=== PATIENT | male | born 1950 | race Caucasian/White ===

== ENCOUNTER 2016-10-10 06:25 | Outpatient (RCR) | payer OTHER ==
[~2016-10-10] VITALS: Ht 170.2 cm; Wt 78.0 kg
[2016-10-10] MEDS ORDERED: Ketamine 500mg Inj ONE (06:26)
[2016-10-10] MEDS ORDERED: Succinylcholine 20mg/ml 10ml vial ONE (06:26)
[2016-10-10] MEDS ORDERED: NS 550ML IV ONE (06:26)
[2016-10-10] MEDS ORDERED: Atropine Sulfate 0.4mg/ml inj IVP PRN (19:45)
== END 2016-10-25 | disposition home or self-care (01) ==
LOC: ECT 06:25
DX: F33.2 Major depressive disorder, recurrent severe without psychotic features (principal)
CPT/HCPCS: 90870; J0330; J2405; J3490; J7040

== ENCOUNTER 2017-01-04 09:05 | Outpatient (RCR) | payer OTHER ==
[~2017-01-04] VITALS: Ht 170.2 cm; Wt 78.6 kg
[2017-01-04] MEDS ORDERED: Succinylcholine 20mg/ml 10ml vial ONE (09:06)
[2017-01-04] MEDS ORDERED: Ketamine 500mg Inj ONE (09:06)
[2017-01-04] MEDS ORDERED: NS 550ML IV ONE (09:06)
[2017-01-04] MEDS ORDERED: Atropine Sulfate 0.4mg/ml inj IVP PRN (10:16)
== END 2017-01-25 | disposition home or self-care (01) ==
LOC: ECT 09:05
DX: F33.2 Major depressive disorder, recurrent severe without psychotic features (principal)
CPT/HCPCS: 90870; J0330; J2405; J3490; J7040

== ENCOUNTER → 2017-03-27 | Outpatient (RCR) | payer OTHER ==
[~2017-03-27] VITALS: Ht 170.2 cm; Wt 78.6 kg
[~2017-03-27] MED LIST: Ketamine 500mg Inj ONE; NS 500ML IV ONE; Sodium Chloride 500ML 500 ML IV ONE; Succinylcholine 20mg/ml 10ml vial ONE
== END | disposition home or self-care (01) ==
LOC: ECT 07:48
DX: F33.2 Major depressive disorder, recurrent severe without psychotic features (principal)
CPT/HCPCS: 90870; J0330; J2405; J3490; J7040

== ENCOUNTER 2017-06-26 04:37 | Outpatient (RCR) | payer OTHER ==
[~2017-06-26] VITALS: Ht 170.2 cm; Wt 78.6 kg
[2017-06-26] MEDS ORDERED: NS 500ML IV ONE (04:38)
[2017-06-26] MEDS ORDERED: Succinylcholine 20mg/ml 10ml vial ONE (04:38)
[2017-06-26] MEDS ORDERED: Ketamine 500mg Inj ONE (04:38)
[2017-06-26 09:51] VITALS: BP 121/71
[2017-06-26] MEDS ORDERED: Sodium Chloride 500ML 500 ML IV ONE (10:09)
[2017-06-26 10:10] VITALS: BP 135/64
[2017-06-26 10:15] VITALS: BP 145/72
[2017-06-26 10:20] VITALS: BP 147/77
[2017-06-26 10:25] VITALS: BP 147/77
== END 2017-06-27 | disposition home or self-care (01) ==
LOC: ECT 04:37
DX: F33.2 Major depressive disorder, recurrent severe without psychotic features (principal)
CPT/HCPCS: 90870; J0330; J2405; J3490; J7040

== ENCOUNTER 2017-09-18 06:03 | Outpatient (RCR) | payer OTHER ==
[~2017-09-18] VITALS: Ht 30.5 cm; Wt 0.5 kg
[2017-09-27] MEDS ORDERED: NS 500ML ONE (08:00)
[2017-09-27] MEDS ORDERED: Ketamine 500mg Inj ONE (08:00)
[2017-09-27] MEDS ORDERED: Succinylcholine 20mg/ml 10ml vial ONE (08:00)
[2017-09-27 10:03] VITALS: BP 134/75
[2017-09-27] MEDS ORDERED: Sodium Chloride 500ML 500 ML IV ONE (10:19)
[2017-09-28 10:20] VITALS: BP 145/66
[2017-09-28 10:25] VITALS: BP 154/76
[2017-09-28 10:30] VITALS: BP 155/72
[2017-09-28 10:35] VITALS: BP 155/72
== END 2017-09-27 | disposition home or self-care (01) ==
LOC: EDSEX → ECT 06:03
DX: F33.2 Major depressive disorder, recurrent severe without psychotic features (principal); F34.1 Dysthymic disorder; J45.909 Unspecified asthma, uncomplicated; K86.2 Cyst of pancreas
CPT/HCPCS: 90870; J0330; J2405; J3490; J7040

== ENCOUNTER 2017-12-27 05:59 | Outpatient (RCR) | payer OTHER ==
[~2017-12-27] VITALS: Ht 170.2 cm; Wt 78.6 kg
[2017-12-27] MEDS ORDERED: Succinylcholine 20mg/ml 10ml vial ONE (06:00)
[2017-12-27] MEDS ORDERED: NS 500ML ONE (06:00)
[2017-12-27] MEDS ORDERED: Ketamine 500mg Inj ONE (06:00)
[2017-12-27 10:50] VITALS: BP 135/76
[2017-12-27] MEDS ORDERED: Sodium Chloride 500ML 500 ML IV ONE (11:08)
[2017-12-27 11:10] VITALS: BP 147/59
[2017-12-27 11:15] VITALS: BP 143/76
[2017-12-27 11:20] VITALS: BP 148/75
[2017-12-27 11:25] VITALS: BP 155/78
== END 2018-01-25 | disposition home or self-care (01) ==
LOC: ECT 05:59
DX: F33.2 Major depressive disorder, recurrent severe without psychotic features (principal)
CPT/HCPCS: 90870; J0330; J2405; J3490; J7040

== ENCOUNTER 2018-03-28 05:54 | Outpatient (RCR) | payer OTHER ==
[~2018-03-28] VITALS: Ht 170.2 cm; Wt 78.6 kg
[2018-03-28] MEDS ORDERED: NS 500ML ONE (05:55)
[2018-03-28] MEDS ORDERED: Succinylcholine 20mg/ml 10ml vial ONE (05:55)
[2018-03-28] MEDS ORDERED: Ketamine 500mg Inj ONE (05:55)
[2018-03-28] MEDS ORDERED: Sodium Chloride 500ML 500 ML IV ONE ×2 (09:59→10:26)
[2018-03-28 10:02] VITALS: BP 125/67
[2018-03-28 10:30] VITALS: BP 138/66
[2018-03-28 10:35] VITALS: BP 143/78
[2018-03-28 10:40] VITALS: BP 145/77
[2018-03-28 10:45] VITALS: BP 149/82
== END 2018-04-27 | disposition home or self-care (01) ==
LOC: ECT 05:54
DX: F33.2 Major depressive disorder, recurrent severe without psychotic features (principal); F41.9 Anxiety disorder, unspecified; E78.5 Hyperlipidemia, unspecified; J45.909 Unspecified asthma, uncomplicated; K76.0 Fatty (change of) liver, not elsewhere classified; E03.9 Hypothyroidism, unspecified
CPT/HCPCS: 90870; J0330; J2405; J3490; J7040

== ENCOUNTER 2018-06-25 04:51 | Outpatient (RCR) | payer OTHER ==
[~2018-06-25] VITALS: Ht 170.2 cm; Wt 78.6 kg
[2018-06-25] MEDS ORDERED: Succinylcholine 20mg/ml 10ml vial ONE (04:52)
[2018-06-25] MEDS ORDERED: NS 500ML ONE (04:52)
[2018-06-25] MEDS ORDERED: Ketamine HCl 100mg syr ONE (04:52)
[2018-06-25 11:16] VITALS: BP 133/75
[2018-06-25] MEDS ORDERED: Sodium Chloride 500ML 500 ML IV ONE (11:41)
[2018-06-25] MEDS ORDERED: Atropine Sulfate 0.4mg/ml inj IVP PRN (11:41)
[2018-06-25 11:45] VITALS: BP 130/52
[2018-06-25 11:50] VITALS: BP 132/60
[2018-06-25 11:55] VITALS: BP 144/63
[2018-06-25 12:00] VITALS: BP 147/68
== END 2018-06-27 | disposition home or self-care (01) ==
LOC: ECT 04:51
DX: F33.2 Major depressive disorder, recurrent severe without psychotic features (principal)
CPT/HCPCS: 90870; J0330; J2405; J7040